=== PATIENT | male | born 1970 | race Caucasian/White ===

== ENCOUNTER 2017-09-04 14:20 | Emergency (ER) | payer MEDICAID, SELFPAY ==
[2017-09-04 14:35] VITALS: BP 132/81; PULSE 137; RESP 16; TEMP 36.6; BMI 27.3
[2017-09-04 16:12] LABS: Anion Gap 8 (5-15); BUN 15 mg/dL (7-18); BUN/Creat Ratio 12.8 RATIO (10-20); Calcium,Total 8.7 mg/dL (8.5-10.1); Chloride 107 mmol/L (98-107); Creatinine, Serum 1.17 mg/dL (0.70-1.30); EST Glomerular Filtration Rate 70 mL/min (>60); Est Glom Filt Rate - Afr Amer 85 mL/min (>60); Estimated Creatinine Clearance 83.83 ml/min; Glucose 119 mg/dL (74-106); Potassium 3.4 mmol/L (3.5-5.1); Sodium Level 141 mmol/L (136-145)
[2017-09-04 16:16] LABS: Absolute Lymphocyte Count 2.27 X10^3/ul (0.83-4.51); Absolute Neutrophil Count 5.5 X10^3/uL (2.0-7.7); Basophil# 0.04 X10^3/uL; Basophil% 0.4 % (0-1); Eosinophil# 0.26 X10^3/uL; Eosinophils% 2.9 % (0-5); Hematocrit 46.9 % (40-54); Hemoglobin 15.7 g/dl (13.0-16.5); Lymphocyte # 2.27 X10^3/ul (4.0); Lymphocyte % 25.2 % (19-41); Mean Corp Hgb Conc 33.5 g/gl (32-36); Mean Corpuscular Hgb 31.4 pg (27.0-32.0); Mean Corpuscular Volume 93.8 fL (80-94); Mean Platelet Vol. 9.9 fl (6.2-12.0); Monocyte# 0.86 X10^3/uL; Monocyte% 9.6 % (0-10); Neutrophil # 5.54 X10^3/uL (2.7-7.7); Neutrophil % 61.6 % (47-70); POSITIVE COUNT NO; POSITIVE DIFFERENTIAL NO; POSITIVE MORPHOLOGY NO; Platelet Count 202 K/mm3 (150-450); RBC Distribution Width CV 14.1 % (11.6-14.6)
--- NOTE | 2017-09-04 17:36 | ED.DCSUM_ITS ---
- ER Visit Summary Date of Service: 09/04/17 Chief Complaint: Depression, anxiety History of Present Illness: The patient is a 47 M since to the emergency department with depression and anxiety. Patient states that he used to follow with Dr. Joe for this. He states that he was on Ativan for a time. He states that he ended up having a tox screen that was positive for methamphetamines and was taken off of this medication. He states that he has been increasingly anxious since. He was just arrested 2 days ago for methamphetamine possession. He states that he got kicked out of his apartment by his girlfriend. He is currently at the [facility]. He states he has been severely depressed. He states I just want to crawl into a hole and . He denies any specific thoughts of suicide. He denies any specific plan. He states he just feels like there is not much to live for. Physical Examination: Vital signs reviewed General: Well-nourished, well-developed Head: Normocephalic, atraumatic Eyes: Pupils equal and reactive, extraocular muscles intact Neck, supple, no lymphadenopathy Heart: Regular rate and rhythm Respiratory: No distress, clear bilaterally Abdomen: Soft, nontender, nondistended, no peritoneal signs Back: Nontender Extremities: Nontender, no edema, no cords Skin: Normal color no rash Neuro: Alert and oriented, no focal or lateralizing deficits Test Results: [] Emergency Department Course and Treatment: The patient underwent medical screening exam. His tox was positive for amphetamines. He is not intoxicated. He was depressed, but not suicidal. The patient was evaluated by counseling. At this time, I do feel that he is safe for discharge. He is given outpatient resources. He will be discharged home. Treatment Plan: [] Disposition: Charge Impression: 1. Depression and anxiety This note was generated with Epic Sciencesation software. It may contain incorrect words, spelling, and punctuation that were not noted in review of the chart prior to signing ED Disposition - Plan for ED Patient: Chief Complaint: Mental Health Instructions: ED Depression Referrals: Counseling,Center [GROUP OF PHYSICIANS] -
[2017-09-04] MEDS: LORazepam 1 MG Tablet PO (18:20)
--- NOTE | 2017-09-04 19:05 | ED.RN ---
CALLED [facility] TO HAVE THEM COME SEE PATIENT. ENERGY TRADING ANALYST STATED SHE WOULD LET [facility] KNOW.
--- NOTE | 2017-09-04 19:27 | ED.RN ---
[facility]AYRA CALLED AND STATED SHE WILL BE RIGHT OVER.
[2017-09-04 19:44] LABS: Amphetamine Urine VISTA POSITIVE (<1000 ng/mL); Barbiturate Urine VISTA NEGATIVE (< 200 ng/mL); Benzodiazepine Urine VISTA NEGATIVE (< 200 ng/mL); Cocaine Urine VISTA NEGATIVE (< 300 ng/mL); Ecstacy Urine VISTA POSITIVE (< 500 ng/mL); Methadone Urine VISTA NEGATIVE (< 300 ng/mL); PCP Urine VISTA NEGATIVE (< 25 ng/mL); THC Urine VISTA POSITIVE (< 50 ng/mL); Vista UDS pH Range 6
[2017-09-04 20:16] VITALS: BP 125/84; PULSE 118; RESP 18; O2SAT 94
--- NOTE | 2017-09-04 20:29 | ED.RN ---
[facility]RA IS HERE EVALUATING PATIENT.
--- NOTE | 2017-09-04 22:14 | ED.RN ---
DISCHARGE INSTRUCTIONS GIVEN TO AND REVIEWED WITH PATIENT, PATIENT DENIES QUESTIONS OR CONCERNS AND VOICES UNDERSTANDING OF DISCHARGE INSTRUCTIONS. [facility] CALLED FOR ADMISSION AND STATES THAT THEY DO NOT DO INTAKE AFTER 1999 AND THAT INTAKE WILL BEGIN AGAIN AFTER 0900. PT AND DR. GARCIA MADE AWARE, PT WILL SLEEP IN ED UNTIL 0700.
[2017-09-04 22:16] VITALS: BP 121/80; PULSE 100; RESP 17; O2SAT 95
--- NOTE | 2017-09-04 23:02 | NURSING ---
PATIENT SLEEPING SOUNDLY IN HIS ROOM.
--- NOTE | 2017-09-05 06:01 | NURSING ---
PATIENT IS STILL SLEEPING SOUNDLY WHEN I CHECKED ON HIM.
[2017-09-05 09:32] VITALS: BP 136/81; PULSE 108; O2SAT 97
== END 2017-09-05 09:34 | disposition home or self-care (01) ==
PROVIDERS: Emergency Provider Emergency Medicine; Family Provider Nurse Practitioner Primary Care; PCP Nurse Practitioner Primary Care
DX: F32.9 Major depressive disorder, single episode, unspecified (principal); F41.9 Anxiety disorder, unspecified; Z79.51 Long term (current) use of inhaled steroids; Z79.899 Other long term (current) drug therapy; Z72.0 Tobacco use
CPT/HCPCS: 80048; 80307; 80320; 85025; 99285; G0480